=== PATIENT | female | born 1940 | race Caucasian/White ===

== ENCOUNTER 2017-08-08 07:44 | Day surgery (SDC) | payer MEDICARE, OTHER ==
[2017-08-08] MEDS ORDERED: Sodium Chloride 0.9% 10 ML Syringe FLUSH PRN (08:15)
--- NOTE | 2017-08-08 10:28 | OR ---
DATE OF PROCEDURE: 08/08/2017 POSTOPERATIVE CARE: Postoperative care will be provided mainly at the [address] [place] [address] [facility] in conjunction with [facility]. PREOPERATIVE DIAGNOSIS: Cataract, right eye. PREOPERATIVE DIAGNOSIS: Cataract, right eye. PROCEDURE: Cataract extraction, phacoemulsification with intraocular lens placement in the right eye. ANESTHESIA: Topical and intracameral. ESTIMATED BLOOD LOSS: Minimal. COMPLICATIONS: None. PATHOLOGY SPECIMENS: None. SURGICAL FINDINGS: None. INDICATION FOR PROCEDURE: The patient is a 77-year-old female with history of a visually significant cataract in the right eye, which interfered with activities of daily living. This consisted of a nuclear sclerosis cataract. Following careful discussion of the risks, benefits and alternatives to cataract extraction with intraocular lens placement including blindness and , the patient elected to proceed, and informed, written consent was obtained prior to the procedure. DESCRIPTION OF THE PROCEDURE: The patient was previously identified, and a kylie placed above the right eye. All sources, including the patient, indicated that the right eye was the correct eye. The patient was subsequently taken to the operating room where standard monitors were applied. The patient was then prepped and draped in the usual sterile fashion for ophthalmic surgery. Attention was first directed at the 12 o'clock position where a paracentesis port was fashioned. Shugar solution followed by Viscoat was instilled into the eye. Attention was then directed to the 8:30 position where a triplanar incision was made in a near-clear manner using a keratome. A continuous capsulorrhexis was then made using a combination of the cystotome and Utrata forceps. Hydrodissection was achieved using a balanced salt solution, and the lens rotated nicely. Phacoemulsification was then done using a modified [id number] technique without complication. Phaco time was 7.75 CDE. The remaining cortex was removed using the irrigation/aspiration handpiece. Provisc was then instilled into the eye. A Technis lens, model [id number], at 22.0 diopters was then placed in the capsular bag using an [place] injector. The remaining viscoelastic was removed using the irrigation/aspiration forceps. All wounds were then checked and found to be watertight. The lid speculum and drapes were removed. Maxitrol ointment was placed in the patient's right eye, and the eye was shielded. The patient tolerated the procedure well. The patient was instructed to follow up tomorrow. All needle and sponge counts were correct at the end of the procedure. Jacque Wilkinson MD /[id number]
== END 2017-08-08 09:45 | disposition home or self-care (01) ==
LOC: JP.SDS 07:44
PROVIDERS: ATTEND Ophthalmology
DX: H25.11 Age-related nuclear cataract, right eye (principal)
CPT/HCPCS: 66984; C1780

== ENCOUNTER 2017-08-22 06:28 | Day surgery (SDC) | payer MEDICARE, OTHER ==
[~2017-08-22 06:28] MED LIST: Sodium Chloride 0.9% 10 ML Syringe FLUSH PRN
--- NOTE | 2017-08-22 10:56 | OR ---
DATE OF PROCEDURE: 08/22/2017 POSTOPERATIVE CARE: Postoperative care will be provided mainly at the [address] [place] [address] [facility] in conjunction with [facility]. PREOPERATIVE DIAGNOSIS: Cataract, left eye. PREOPERATIVE DIAGNOSIS: Cataract, left eye. PROCEDURE: Cataract extraction, phacoemulsification with intraocular lens placement, left eye. ANESTHESIA: Topical and intracameral. ESTIMATED BLOOD LOSS: Minimal. COMPLICATIONS: None. PATHOLOGY SPECIMENS: None. SURGICAL FINDINGS: None. INDICATION FOR PROCEDURE: The patient is a 77-year-old female with history of a visually significant cataract in the left eye, which interfered with activities of daily living. This consisted of a nuclear sclerosis cataract. Following careful discussion of the risks, benefits and alternatives to cataract extraction with intraocular lens placement including blindness and , the patient elected to proceed, and informed, written consent was obtained prior to the procedure. DESCRIPTION OF THE PROCEDURE: The patient was previously identified, and a kylie placed above the left eye. All sources, including the patient, indicated that the left eye was the correct eye. The patient was subsequently taken to the operating room where standard monitors were applied. The patient was then prepped and draped in the usual sterile fashion for ophthalmic surgery. Attention was first directed at the 12 o'clock position where a paracentesis port was fashioned. Shugar solution followed by Viscoat was instilled into the eye. Attention was then directed to the 8:30 position where a triplanar incision was made in a near-clear manner using a keratome. A continuous capsulorrhexis was then made using a combination of the cystotome and Utrata forceps. Hydrodissection was achieved using a balanced salt solution, and the lens rotated nicely. Phacoemulsification was then done using a modified [id number]-[id number] technique without complication. Phaco time was 7.43 CDE. The remaining cortex was removed using the irrigation/aspiration handpiece. Provisc was then instilled into the eye. A Technis lens, model [id number], at 22.5 diopters was then placed in the capsular bag using an [place] injector. The remaining viscoelastic was removed using the irrigation/aspiration forceps. All wounds were then checked and found to be watertight. The lid speculum and drapes were removed. Maxitrol ointment was placed in the patient's left eye, and the eye was shielded. The patient tolerated the procedure well. The patient was instructed to follow up tomorrow. All needle and sponge counts were correct at the end of the procedure. Jacque Wilkinson MD /[id number]
== END 2017-08-22 08:27 | disposition home or self-care (01) ==
LOC: JP.SDS 06:28
PROVIDERS: ATTEND Ophthalmology
DX: H26.9 Unspecified cataract (principal); K21.9 Gastro-esophageal reflux disease without esophagitis; I10 Essential (primary) hypertension; E78.00 Pure hypercholesterolemia, unspecified; Z90.49 Acquired absence of other specified parts of digestive tract; Z98.890 Other specified postprocedural states; Z87.891 Personal history of nicotine dependence
CPT/HCPCS: 66984; C1780; J7050

== ENCOUNTER 2024-07-26 04:17 | Inpatient (IN) | payer MEDICARE, OTHER ==
[2024-07-26 04:28] LABS: BASOPHILS PERCENT AUTO 0.1 % (0.1-1.3); HEMATOCRIT 37.1 % (34.3-46.0); HEMOGLOBIN 10.6 g/dL (11.2-15.5); IMMATURE GRAN ABSOLUTE AUTO 0.11 K/uL (0.00-0.23); LYMPHOCYTES PERCENT AUTO 12.9 % (11.4-47.7); MEAN CORPUSCULAR HEMOGLOBIN 23.2 pg (31.6-35.5); MEAN CORPUSCULAR HGB CONC 28.6 g/dL (31.6-35.5); MEAN CORPUSCULAR VOLUME 81.4 fL (81.4-99.0); MONOCYTES ABSOLUTE AUTO 0.73 K/uL (0.20-0.90); MONOCYTES PERCENT AUTO 6.7 % (3.3-12.6); NEUTROPHILS PERCENT AUTO 79.3 % (40.0-78.1); PLATELET COUNT,PLT 280 K/uL (130-375); WHITE BLOOD CELL COUNT,WBC 10.9 K/uL (3.2-11.0)
[2024-07-26] MEDS: Furosemide 40 MG/4 ML VIAL IVPUSH ONE (04:39)
[2024-07-26] MEDS: Albuterol/Ipratropium 3.0-0.5 MG/3 ML Neb Soln NEB ONE (04:46)
[2024-07-26] MEDS: Furosemide 40 MG/4 ML VIAL ONE (04:47)
[2024-07-26 04:54] LABS: BASOPHILS ABSOLUTE AUTO 0.01 K/uL (0.00-0.10); RED BLOOD CELL COUNT 4.56 M/uL (3.77-5.24)
[2024-07-26 04:54] LABS: BASE EXCESS ARTERIAL -18.8 mm/L; CARBOXYHEMOGLOBIN 1.8 % (0.0-1.6); METHEMOGLOBIN 0.5 %; OXYHEMOGLOBIN 87.9 %; PCO2 ARTERIAL 23.9 mmHg (35.0-42.0); PO2 ARTERIAL 81.7 mmHg (75.0-100.0); TOTAL HEMOGLOBIN 10.6 g/dL (12.0-16.0)
[2024-07-26 04:55] LABS: BICARBONATE,ARTERIAL 8.4 mmol/L (22.0-26.0)
[2024-07-26 05:06] LABS: A/G RATIO 0.5 (1.2-2.2); ALANINE AMINOTRANSFERASE,ALT 486 U/L (12-78); ALBUMIN 2.5 g/dL (3.4-5.0); ALKALINE PHOSPHATASE 234 U/L (46-116); BLOOD UREA NITROGEN,BUN 63 mg/dL (7-18); CALCIUM 8.7 mg/dL (8.5-10.1); CHLORIDE,CL 97 mmol/L (100-108); EST CRCL DRUG DOSING (CG) 9.63 mL/min; ESTIMATED GFR 12 mL/min (>60); GLUCOSE RANDOM 124 mg/dL (74-106); POTASSIUM,K 5.8 mmol/L (3.6-5.2); PROTEIN TOTAL,TP 7.9 g/dL (6.4-8.2); SODIUM,NA 134 mmol/L (140-148); TROPONIN I HIGH SENSITIVITY 27.7 pg/mL (<=60.3)
[2024-07-26] MEDS: Norepinephrine Bit/D5W Premix 4 MG in Premix Bag 1 BAG IV SCH (05:29)
[2024-07-26] MEDS: Sodium Chloride 0.9% 1,000 ML IV SCH (05:29)
[2024-07-26 05:31] LABS: BASE EXCESS ARTERIAL -16.5 mm/L; CARBOXYHEMOGLOBIN 3.1 % (0.0-1.6); METHEMOGLOBIN 0.8 %; O2 SATURATION ARTERIAL 93.4 % (95.0-98.0); OXYHEMOGLOBIN 89.8 %; PCO2 ARTERIAL 22.7 mmHg (35.0-42.0); PO2 ARTERIAL 87.1 mmHg (75.0-100.0); TOTAL HEMOGLOBIN 10.3 g/dL (12.0-16.0)
[2024-07-26 05:37] LABS: BICARBONATE,ARTERIAL 9.4 mmol/L (22.0-26.0)
[2024-07-26 05:37] LABS: ANION GAP 31.8 mmol/L (5.0-14.0); CARBON DIOXIDE,CO2 11 mmol/L (21-32)
[2024-07-26 05:38] LABS: ASPARTATE AMNIOTRANSFERASE,AST 1127 U/L (15-37); CREATININE 3.5 mg/dL (0.6-1.0)
[2024-07-26] MEDS: Meropenem 1 GM in Sodium Chloride 0.9% 100 ML IV ONE (06:18)
[2024-07-26] MEDS: Sodium Chloride 0.9% 1,000 ML IV ONE (06:31)
[2024-07-26 08:23] LABS: CALCIUM 8.3 mg/dL (8.5-10.1); EST CRCL DRUG DOSING (CG) 11.24 mL/min
[2024-07-26 08:24] LABS: TROPONIN I HIGH SENSITIVITY 29.6 pg/mL (<=60.3)
[2024-07-26] MEDS: Azithromycin 500 MG in Sodium Chloride 0.9% 250 ML IV SCH (08:48)
[2024-07-26] MEDS: Piperacillin/Tazobactam 4.5 GM in Sodium Chloride 0.9% 100 ML IV ONE (10:22)
[2024-07-26] MEDS ORDERED: Sodium Chloride 0.9% 1,000 ML IV SCH ×3 (10:30→14:00)
[2024-07-26] MEDS ORDERED: Ondansetron 4 MG/2 ML SDV IV PRN (10:58)
[2024-07-26] MEDS ORDERED: Polyethylene Glycol 3350 Powder 17 GM Packet PO PRN (10:58)
[2024-07-26] MEDS ORDERED: Norepinephrine Bit/D5W Premix 4 MG in Premix Bag 1 BAG IV SCH (10:58)
[2024-07-26] MEDS ORDERED: Sodium Chloride 0.9% 10 ML Syringe FLUSH PRN (10:58)
[2024-07-26] MEDS: Aspirin 81 MG Tab.Chew PO SCH (11:13)
[2024-07-26] MEDS: Albuterol/Ipratropium 3.0-0.5 MG/3 ML Neb Soln NEB SCH (11:17)
[2024-07-26] MEDS: Enoxaparin 30 MG/0.3 ML Syringe SUBCUT SCH (11:28)
[2024-07-26] MEDS: Latanoprost 0.005% Ophth Soln 2.5 ML Bottle EYELF SCH (11:28)
[2024-07-26 17:05] LABS: O2 SATURATION ARTERIAL > 99.3 % (95.0-98.0); OXYHEMOGLOBIN 95.5 %; PCO2 ARTERIAL 25.2 mmHg (35.0-42.0); TOTAL HEMOGLOBIN 9.9 g/dL (12.0-16.0)
[2024-07-26 17:25] LABS: CALCIUM 8.1 mg/dL (8.5-10.1); CREATININE 2.7 mg/dL (0.6-1.0); EST CRCL DRUG DOSING (CG) 12.38 mL/min; POTASSIUM,K 4.3 mmol/L (3.6-5.2)
[2024-07-26 17:28] LABS: ANION GAP 21.3 mmol/L (5.0-14.0)
[2024-07-26] MEDS: atorvaSTATin 20 MG Tab PO SCH (21:31)
[2024-07-26] MEDS: Piperacillin/Tazobactam/Dext 4.5 GM in Premix Bag 1 BAG IV SCH (21:31)
[2024-07-26] MEDS ORDERED: Piperacillin/Tazobactam 4.5 GM in Sodium Chloride 0.9% 100 ML IV SCH (22:00)
[2024-07-27 05:05] LABS: BASE EXCESS ARTERIAL -5.5 mm/L; BICARBONATE,ARTERIAL 16.8 mmol/L (22.0-26.0); CARBOXYHEMOGLOBIN 3.4 % (0.0-1.6); METHEMOGLOBIN 0.7 %; OXYHEMOGLOBIN 95.4 %; PCO2 ARTERIAL 23.8 mmHg (35.0-42.0); TOTAL HEMOGLOBIN 9.9 g/dL (12.0-16.0)
[2024-07-27 05:08] LABS: O2 SATURATION ARTERIAL > 99.3 % (95.0-98.0)
[2024-07-27 05:25] LABS: HEMATOCRIT 29.9 % (34.3-46.0); HEMOGLOBIN 9.4 g/dL (11.2-15.5); MEAN CORPUSCULAR HEMOGLOBIN 23.2 pg (31.6-35.5); MEAN CORPUSCULAR HGB CONC 31.4 g/dL (31.6-35.5); MEAN CORPUSCULAR VOLUME 73.8 fL (81.4-99.0); RED BLOOD CELL COUNT 4.05 M/uL (3.77-5.24); WHITE BLOOD CELL COUNT,WBC 18.7 K/uL (3.2-11.0)
[2024-07-27 05:38] LABS: A/G RATIO 0.5 (1.2-2.2); ALANINE AMINOTRANSFERASE,ALT 923 U/L (12-78); ALBUMIN 2.2 g/dL (3.4-5.0); ALKALINE PHOSPHATASE 169 U/L (46-116); BILIRUBIN TOTAL 0.6 mg/dL (0.2-1.0); BLOOD UREA NITROGEN,BUN 71 mg/dL (7-18); CARBON DIOXIDE,CO2 19 mmol/L (21-32); CHLORIDE,CL 103 mmol/L (100-108); CREATININE 2.5 mg/dL (0.6-1.0); EST CRCL DRUG DOSING (CG) 13.37 mL/min; ESTIMATED GFR 19 mL/min (>60); GLUCOSE RANDOM 112 mg/dL (74-106); MAGNESIUM 1.9 mg/dL (1.8-2.4); POTASSIUM,K 4.1 mmol/L (3.6-5.2); PROTEIN TOTAL,TP 6.7 g/dL (6.4-8.2); SODIUM,NA 137 mmol/L (140-148)
[2024-07-27 06:21] LABS: ANION GAP 19.1 mmol/L (5.0-14.0); ASPARTATE AMNIOTRANSFERASE,AST 1923 U/L (15-37)
[2024-07-27] MEDS: Timolol Maleate 0.5% Ophth Soln 5 ML Bottle EYELF SCH (08:38)
[2024-07-27] MEDS ORDERED: Phenol/Sodium Phenolate Spray 180 ML Bottle MUCMEM PRN (10:23)
[2024-07-27 11:29] LABS: CORONAVIRUS COVID-19 NAA NEGATIVE (NEGATIVE); INFLUENZA A NAA NEGATIVE (NEGATIVE); INFLUENZA B NAA NEGATIVE (NEGATIVE); RESPIRATORY SYNCYTIAL VIR NAA NEGATIVE (NEGATIVE)
[2024-07-27] MEDS: Sodium Chloride 0.9% 1,000 ML IV SCH (12:43)
[2024-07-27] MEDS: Doxycycline 100 MG in Sodium Chloride 0.9% 100 ML IV SCH (18:28)
[2024-07-27] MEDS: Latanoprost 0.005% Ophth Soln 2.5 ML Bottle EYELF SCH (20:22)
[2024-07-27] MEDS: Melatonin 3 MG Tab PO PRN (23:51)
[2024-07-28 06:11] LABS: HEMATOCRIT 31.5 % (34.3-46.0); HEMOGLOBIN 9.7 g/dL (11.2-15.5); MEAN CORPUSCULAR HEMOGLOBIN 23.5 pg (31.6-35.5); MEAN CORPUSCULAR VOLUME 76.5 fL (81.4-99.0); RED BLOOD CELL COUNT 4.12 M/uL (3.77-5.24); WHITE BLOOD CELL COUNT,WBC 16.4 K/uL (3.2-11.0)
[2024-07-28 06:33] LABS: A/G RATIO 0.5 (1.2-2.2); ALANINE AMINOTRANSFERASE,ALT 584 U/L (12-78); ALBUMIN 2.1 g/dL (3.4-5.0); ALKALINE PHOSPHATASE 149 U/L (46-116); ASPARTATE AMNIOTRANSFERASE,AST 606 U/L (15-37); BILIRUBIN TOTAL 0.6 mg/dL (0.2-1.0); BLOOD UREA NITROGEN,BUN 56 mg/dL (7-18); CALCIUM 8.2 mg/dL (8.5-10.1); CARBON DIOXIDE,CO2 20 mmol/L (21-32); CHLORIDE,CL 107 mmol/L (100-108); CREATININE 1.7 mg/dL (0.6-1.0); EST CRCL DRUG DOSING (CG) 19.66 mL/min; ESTIMATED GFR 30 mL/min (>60); GLUCOSE RANDOM 119 mg/dL (74-106); POTASSIUM,K 3.6 mmol/L (3.6-5.2); PROTEIN TOTAL,TP 6.6 g/dL (6.4-8.2); SODIUM,NA 141 mmol/L (140-148)
[2024-07-28 06:36] LABS: ANION GAP 17.6 mmol/L (5.0-14.0)
[2024-07-28 06:41] LABS: MEAN CORPUSCULAR HGB CONC 30.8 g/dL (31.6-35.5)
[2024-07-28] MEDS: Acetaminophen 325 MG Tab PO PRN (20:51)
[2024-07-29 05:33] LABS: HEMOGLOBIN 10.1 g/dL (11.2-15.5); MEAN CORPUSCULAR HEMOGLOBIN 23.1 pg (31.6-35.5); MEAN CORPUSCULAR HGB CONC 29.7 g/dL (31.6-35.5); MEAN CORPUSCULAR VOLUME 77.8 fL (81.4-99.0); RED BLOOD CELL COUNT 4.37 M/uL (3.77-5.24); WHITE BLOOD CELL COUNT,WBC 17.5 K/uL (3.2-11.0)
[2024-07-29] MEDS: Albuterol 0.083% 2.5 MG/3 ML Neb Soln NEB PRN (05:42)
[2024-07-29 05:55] LABS: C-REACTIVE PROTEIN 6.73 mg/dL (<0.50); CALCIUM 8.6 mg/dL (8.5-10.1); CREATININE 0.9 mg/dL (0.6-1.0); EST CRCL DRUG DOSING (CG) 37.13 mL/min; POTASSIUM,K 3.4 mmol/L (3.6-5.2)
[2024-07-29 05:56] LABS: ANION GAP 13.4 mmol/L (5.0-14.0)
[2024-07-29] MEDS: Potassium Chloride 20 MEQ Tab.ER PO ONE (12:57)
[2024-07-29] MEDS ORDERED: Piperacillin/Tazobactam/Dext 4.5 GM in Premix Bag 1 BAG IV SCH (17:00)
[2024-07-29] MEDS: cefTRIAXone 2 GM in Sodium Chloride 0.9% 50 ML IV SCH (17:05)
[2024-07-30] MEDS: Enoxaparin 40 MG/0.4 ML Syringe SUBCUT SCH (08:43)
[2024-07-30] MEDS: Iopamidol 755 Mg/ML 100 ML Bottle IV ONE (12:29)
[2024-07-30] MEDS: Sodium Chloride 0.9% 10 ML Syringe FLUSH ONE (12:30)
[2024-07-30] MEDS: Sodium Chloride 0.9% 100 ML IV ONE (12:30)
[2024-07-30] MEDS: LORazepam 0.5 MG Tab PO PRN (12:31)
[2024-07-30] MEDS: Bumetanide 1 MG/4 ML MDV IVPUSH ONE (13:49)
[2024-07-30] MEDS: Dimethicone 20%/Zinc Oxide 25% 56 GM Spray Bottle TOP PRN (15:45)
[2024-07-30] MEDS: Bumetanide 1 MG/4 ML MDV IVPUSH SCH (21:55)
[2024-07-30] MEDS ORDERED: Bumetanide 2.5 MG/10 ML MDV IVPUSH SCH (22:00)
[2024-07-31 05:15] LABS: HEMATOCRIT 30.8 % (34.3-46.0); HEMOGLOBIN 9.2 g/dL (11.2-15.5); MEAN CORPUSCULAR HEMOGLOBIN 22.7 pg (31.6-35.5); MEAN CORPUSCULAR HGB CONC 29.9 g/dL (31.6-35.5); RED BLOOD CELL COUNT 4.05 M/uL (3.77-5.24); WHITE BLOOD CELL COUNT,WBC 15.2 K/uL (3.2-11.0)
[2024-07-31 05:36] LABS: A/G RATIO 0.5 (1.2-2.2); ALANINE AMINOTRANSFERASE,ALT 206 U/L (12-78); ALBUMIN 1.9 g/dL (3.4-5.0); ALKALINE PHOSPHATASE 110 U/L (46-116); ASPARTATE AMNIOTRANSFERASE,AST 90 U/L (15-37); BILIRUBIN TOTAL 0.7 mg/dL (0.2-1.0); BLOOD UREA NITROGEN,BUN 10 mg/dL (7-18); C-REACTIVE PROTEIN 6.46 mg/dL (<0.50); CALCIUM 8.5 mg/dL (8.5-10.1); CARBON DIOXIDE,CO2 28 mmol/L (21-32); CHLORIDE,CL 109 mmol/L (100-108); CREATININE 0.7 mg/dL (0.6-1.0); EST CRCL DRUG DOSING (CG) 47.74 mL/min; ESTIMATED GFR 86 mL/min (>60); GLUCOSE RANDOM 91 mg/dL (74-106); MAGNESIUM 1.1 mg/dL (1.8-2.4); POTASSIUM,K 3.1 mmol/L (3.6-5.2); PROTEIN TOTAL,TP 6.1 g/dL (6.4-8.2); SODIUM,NA 144 mmol/L (140-148)
[2024-07-31 05:37] LABS: ANION GAP 10.1 mmol/L (5.0-14.0)
[2024-07-31] MEDS: Potassium Chloride 20 MEQ Tab.ER PO SCH (09:14)
[2024-07-31] MEDS: Magnesium Sulfate/Water Premix 2 GM in Premix Bag 1 BAG IV SCH (10:40)
[2024-07-31] MEDS: Bumetanide 1 MG/4 ML MDV IVPUSH SCH (11:41)
[2024-08-01 04:49] LABS: HEMATOCRIT 32.3 % (34.3-46.0); HEMOGLOBIN 9.9 g/dL (11.2-15.5); MEAN CORPUSCULAR HEMOGLOBIN 23.2 pg (31.6-35.5); MEAN CORPUSCULAR HGB CONC 30.7 g/dL (31.6-35.5); MEAN CORPUSCULAR VOLUME 75.6 fL (81.4-99.0); RED BLOOD CELL COUNT 4.27 M/uL (3.77-5.24); WHITE BLOOD CELL COUNT,WBC 16.7 K/uL (3.2-11.0)
[2024-08-01 05:06] LABS: CALCIUM 9.1 mg/dL (8.5-10.1); CREATININE 0.8 mg/dL (0.6-1.0); EST CRCL DRUG DOSING (CG) 41.77 mL/min; POTASSIUM,K 3.8 mmol/L (3.6-5.2)
[2024-08-01] MEDS: Acetylcysteine 20% 200 MG/ML 4 ML Nebulizer Soln SDV NEB SCH (10:35)
[2024-08-01] MEDS: Calcium Carbonate 500 MG Tab.Chew PO PRN (14:09)
[2024-08-01] MEDS: LORazepam 2 MG/ML SDV IVPUSH PRN (21:20)
[2024-08-01] MEDS: Bumetanide 1 MG/4 ML MDV IVPUSH SCH (21:25)
[2024-08-01] MEDS ORDERED: Naloxone 0.4 MG/ML SDV IVPUSH PRN (22:05)
[2024-08-01] MEDS: Morphine 2 MG/ML SYRINGE IVPUSH PRN (22:45)
[2024-08-02 04:39] LABS: HEMATOCRIT 32.5 % (34.3-46.0); HEMOGLOBIN 9.7 g/dL (11.2-15.5); MEAN CORPUSCULAR HGB CONC 29.8 g/dL (31.6-35.5); RED BLOOD CELL COUNT 4.22 M/uL (3.77-5.24); WHITE BLOOD CELL COUNT,WBC 15.6 K/uL (3.2-11.0)
[2024-08-02 05:03] LABS: A/G RATIO 0.4 (1.2-2.2); ALANINE AMINOTRANSFERASE,ALT 128 U/L (12-78); ALBUMIN 1.9 g/dL (3.4-5.0); ALKALINE PHOSPHATASE 107 U/L (46-116); ANION GAP 8.5 mmol/L (5.0-14.0); ASPARTATE AMNIOTRANSFERASE,AST 52 U/L (15-37); BILIRUBIN TOTAL 0.7 mg/dL (0.2-1.0); BLOOD UREA NITROGEN,BUN 17 mg/dL (7-18); C-REACTIVE PROTEIN 8.47 mg/dL (<0.50); CALCIUM 8.9 mg/dL (8.5-10.1); CARBON DIOXIDE,CO2 31 mmol/L (21-32); CHLORIDE,CL 104 mmol/L (100-108); CREATININE 0.9 mg/dL (0.6-1.0); EST CRCL DRUG DOSING (CG) 37.13 mL/min; ESTIMATED GFR 63 mL/min (>60); GLUCOSE RANDOM 111 mg/dL (74-106); POTASSIUM,K 4.4 mmol/L (3.6-5.2); PROTEIN TOTAL,TP 6.5 g/dL (6.4-8.2); SODIUM,NA 143 mmol/L (140-148)
[2024-08-02] MEDS: Cefepime 2 GM in Sodium Chloride 0.9% 50 ML IV SCH (09:10)
[2024-08-02] MEDS: methylPREDNISolone Sodium Succinate 125 MG/2 ML SDV IVPUSH ONE (09:10)
[2024-08-02] MEDS: Bumetanide 2.5 MG/10 ML MDV IVPUSH SCH (09:11)
[2024-08-02] MEDS ORDERED: Bumetanide 1 MG/4 ML MDV IVPUSH SCH (10:00)
[2024-08-02] MEDS: Levofloxacin/Dextrose 5%-Water 750 MG in Premix Bag 1 BAG IV SCH (11:43)
[2024-08-02] MEDS: LORazepam ORAL Concentrate 1MG/0.5ML U/D PO PRN (11:51)
[2024-08-02] MEDS: Morphine 10 MG/0.5 ML Oral Syringe PO PRN (13:50)
[2024-08-02] MEDS: methylPREDNISolone Sodium Succinate 125 MG/2 ML SDV IVPUSH SCH (16:16)
== END 2024-08-02 22:53 | disposition expired | DRG 193 ==
LOC: JP.ED 04:17 → JP.ICU 07:47 → JP.MS 07-29 15:38
PROVIDERS: ADMIT Hospitalist; ATTEND Hospitalist
PROC: 5A09457 Assistance with Respiratory Ventilation, 24-96 Consecutive Hours, Continuous Positive Airway Pressure (ICD-10-PCS; principal; 2024-07-26)
PROC: 4A133R1 Monitoring of Arterial Saturation, Peripheral, Percutaneous Approach (ICD-10-PCS; 2024-07-26)
PROC: 5A0945A Assistance with Respiratory Ventilation, 24-96 Consecutive Hours, High Flow/Velocity Cannula (ICD-10-PCS; 2024-07-27)
PROC: 5A09357 Assistance with Respiratory Ventilation, Less than 24 Consecutive Hours, Continuous Positive Airway Pressure (ICD-10-PCS; 2024-08-01)
DX: J18.9 Pneumonia, unspecified organism (principal); I50.33 Acute on chronic diastolic (congestive) heart failure; I50.9 Heart failure, unspecified; J96.01 Acute respiratory failure with hypoxia; K72.00 Acute and subacute hepatic failure without coma; E87.20 Acidosis, unspecified; N17.9 Acute kidney failure, unspecified; J44.0 Chronic obstructive pulmonary disease with (acute) lower respiratory infection; Z66 Do not resuscitate; Z51.5 Encounter for palliative care; E87.6 Hypokalemia; I11.0 Hypertensive heart disease with heart failure; I95.9 Hypotension, unspecified; K21.9 Gastro-esophageal reflux disease without esophagitis; E78.00 Pure hypercholesterolemia, unspecified; H54.7 Unspecified visual loss; M19.90 Unspecified osteoarthritis, unspecified site; M54.9 Dorsalgia, unspecified; Z79.82 Long term (current) use of aspirin; Z90.49 Acquired absence of other specified parts of digestive tract; Z79.899 Other long term (current) drug therapy; Z98.890 Other specified postprocedural states; Z98.49 Cataract extraction status, unspecified eye; Z87.891 Personal history of nicotine dependence
CPT/HCPCS: 0241U; 36415; 36600; 51702; 71045; 71250; 71275; 80048; 80053; 82803; 83605; 83690; 83735; 83880; 84145; 84484; 85025; 85027; 86140; 87040; 87070; 87205; 93005; 93010; 94640; 94660; 96365; 96366; 96368; 96375; 97110; 97162; 97530; 99222; 99232; 99238; 99285; A9270-GY; J0456; J0692; J0696; J0713; J1650; J1940; J1956; J2060; J2185; J2270; J2543; J2919; J3475; J3490; J7030; J7050; J7620; Q9967